=== PATIENT | male | born 1990 | race African-American/Black ===

== ENCOUNTER 2022-08-17 18:24 | Emergency (ER) | payer SELFPAY ==
[~2022-08-17] VITALS: Ht 170.2 cm; Wt 77.0 kg
[2022-08-17 18:28] VITALS: BP 128/87
[2022-08-17] MEDS ORDERED: MECLIZINE 25MG TABLET PO ONE (19:00)
[2022-08-17] MEDS ORDERED: ACYCLOVIR 400 MG TABLET PO ONE (19:00)
[2022-08-17] MEDS ORDERED: PREDNISONE 20MG TABLET PO ONE (19:00)
[2022-08-17] MEDS ORDERED: ACYC200C31 PO (20:34)
[2022-08-17] MEDS ORDERED: POLY15DR31 RIGHTEYE (20:34)
[2022-08-17] MEDS ORDERED: P20 MT (20:34)
== END 2022-08-17 20:45 | disposition home or self-care (01) ==
LOC: ER 18:24
DX: G51.0 Bell's palsy (principal)
CPT/HCPCS: 99284; J7512; J8597

== ENCOUNTER 2022-08-31 03:30 | Emergency (ER) | payer SELFPAY ==
[~2022-08-31] VITALS: Ht 172.7 cm; Wt 84.9 kg
[~2022-08-31 03:30] MED LIST: ACYC200C31 PO; P20 MT; POLY15DR31 RIGHTEYE
[2022-08-31 03:34] VITALS: BP 125/75
[2022-08-31] MEDS ORDERED: FLUORESCEIN SODIUM 1MG/STRIP BOTHEYE ONE (05:45)
[2022-08-31] MEDS ORDERED: TETRACAINE 0.5% OPHTH DROPS 4ML BOTHEYE ONE (05:45)
[2022-08-31] MEDS ORDERED: POLY10DR RIGHTEYE (07:13)
== END 2022-08-31 07:30 | disposition home or self-care (01) ==
LOC: ER 03:30
DX: H44.791 Retained (old) intraocular foreign body, nonmagnetic, in other or multiple sites, right eye (principal); G51.0 Bell's palsy; X58.XXXA Exposure to other specified factors, initial encounter; Y93.89 Activity, other specified; Y92.9 Unspecified place or not applicable; Z18.10 Retained metal fragments, unspecified
CPT/HCPCS: 20520; 70480; 99284